=== PATIENT | female | born 1940 | race Caucasian/White ===

== ENCOUNTER 2016-06-21 10:52 | Emergency (ER) | payer OTHER, MEDICARE ==
[~2016-06-21] VITALS: Ht 162.6 cm; Wt 68.0 kg
[~2016-06-21 10:52] MED LIST: AUGMENTIN 875875 MG PO; CYTOMEL PO; TIROSINT75 MCG PO; TIROSINT88 MCG PO; TRUSOPT 2% OPH; VIT B-6100 MG PO; VITAMIN D1000 IU PO; [UNRECOGNIZED DRUG - OTHER] IO
[2016-06-21] MEDS ORDERED: VITAMIN D32000 UNIT PO (11:45)
[2016-06-21] MEDS ORDERED: COMBIGAN EYE DRO5 ML (11:46)
[2016-06-21] MEDS ORDERED: LUMIGAN2.5 ML OPH (11:46)
[2016-06-21] MEDS ORDERED: VITAMIN B-121000 MC3 PO (11:46)
[2016-06-21] MEDS ORDERED: SYNTHROID88 MCG PO (11:47)
[2016-06-21] MEDS ORDERED: ATORVASTATIN CA10 M1 PO (11:48)
[2016-06-21] MEDS ORDERED: LIOTHYRONINE SO5 MC1 PO (11:48)
--- NOTE | 2016-06-21 11:55 | ED UPPER/LOWER EXTREMITY COMPL ---
History of Present Illness General Chief Complaint: General Adult Stated Complaint: L SHOULDER PAIN X DAYS Source: patient Exam Limitations: no limitations Vital Signs & Intake/Output Vital Signs & Intake/Output Vital Signs Date Time Temp Pulse Resp B/P B/P Pulse O2 O2 Flow FiO2 Mean Ox Delivery Rate 06/21 1059 97.3 84 18 115/73 98 Room Air Allergies Coded Allergies: oxycodone (Intermediate, AGITATION/ALTERED MENTAL STATUS 06/21/16) Reconcile Medications Atorvastatin Calcium 10 MG TABLET 1 TAB PO DAILY HPL (Reported) Bimatoprost (Lumigan) 0.01 % DROPS 1 GTT OPH QPM GLAUCOMA (Reported) Brimonidine Tartrate/Timolol (Combigan Eye Drops) (Unknown Strength) DROPS ( Unknown Dose) BID GLAUCOMA (Reported) Cholecalciferol (Vitamin D3) (Vitamin D3) 2,000 UNIT CAPSULE 1 TAB PO DAILY SUPPLEMENT (Reported) Cyanocobalamin (Vitamin B-12) (Unknown Strength) TABLET (Unknown Dose) PO DAILY SUPPLEMENT (Reported) Cyclobenzaprine HCl 10 MG TABLET 1 TAB PO QPM SPASM Ibuprofen 600 MG TABLET 1 TAB PO Q6 PRN PAIN with food Levothyroxine Sodium (Synthroid) 88 MCG TABLET THYROID (Reported) Levothyroxine Sodium (Synthroid) 88 MCG TABLET 1 TAB PO AD THYROID (Reported) TAKES TWICE A WEEK SAT AND SUN Liothyronine Sodium 5 MCG TABLET 1 TAB PO DAILY THYROID (Reported) Triage Note: PT STATES THAT SHE HAS BEEN LIFTING HEAVEY BOXES OF CLOTHES OVER THE PAST COUPLE OF DAYS AND THAT FOR THE PAST 1.5 DAYS SHE HAS PAIN L UPPER ARM AND SHOULDER, PAIN IS REPRODUCIBLE AND STATES THAT SHE IS UNABLE TO LIFT HER ARM. PT TOOK ALEVE WITH SOME RELIEF. REFUSES MEDS AT TRIAGE Triage Nurses Notes Reviewed? yes Onset: Abrupt Duration: day(s): (2) Timing: recent history Severity: mild, moderate Pain/Injury Location: Left: Shoulder. Method of Injury: LIFTING HEAVY BOXES Modifying Factors: Worsens With: movement. HPI: 76 year old female presents with left shoulder pain x few days after lifting heavy boxes for the past several days while cleaning out closet. States in [place] past 1.5 days pain has gotten worse. Pain is worse with range of motion. Past History Travel History Traveled to [place] past 21 day No Medical History Any Pertinent Medical History? 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 No Review of Systems Review of Systems Constitutional: Denies: chills, fever. EENTM: Reports: no symptoms. Respiratory: Denies: cough, short of breath. Cardiovascular: Denies: chest pain, palpitations. Gastrointestinal/Abdominal: Reports: no symptoms. Genitourinary: Reports: no symptoms. Musculoskeletal: Reports: joint pain, muscle pain, muscle stiffness. Skin: Reports: no symptoms. Neurological/Psychological: Reports: no symptoms. Hematologic/Endocrine: Denies: bruising, bleeding, polyuria, polydipsia. Immunological: Denies: splenectomy. All Other Systems: Reviewed and Negative Physical Exam Physical Exam General Appearance: well developed/nourished, mild distress Head: atraumatic Eyes: Bilateral: PERRL, EOMI. Ears, Nose, Throat: normal pharynx, normal ENT inspection, hearing grossly normal Neck: normal inspection, supple Cardiovascular/Respiratory: regular rate/rhythm Peripheral Pulses: 2+ radial (R), 2+ radial (L) Back: normal inspection Shoulder Left: normal range of motion, normal inspection, PAIN WITH RANGE OF MOTION Shoulder Right: normal range of motion, normal inspection, mass, nodules, swelling, tenderness, abrasions/lacerations, assymetry, bone tenderness, deformity, ecchymosis, evidence of injury, joint effusion, pain, soft tissue tenderness, limited range of motion Elbow Left: normal range of motion, normal inspection Elbow Right: normal range of motion, normal inspection Hand Left: normal inspection, normal range of motion Hand Right: normal inspection, normal range of motion Skin: intact, normal color, warm/dry Lymphatic: no anterior cervical win[place] Progress Differential Diagnosis: dislocation, sprain, ac separation, rorator injury, bursitis Plan of Care: Orders Procedure Date/time Status XRY-SHOULDER COMPLETE-LEFT 06/21 115 Active Current Medications Sig/Suman Start time Last Medication Dose Stop Time Status Admin Ibuprofen 600 MG ONCE ONE 06/21 1230 UNVr (Motrin) 06/21 1231 Diagnostic Imaging: Viewed by Me: Radiology Read. Discussed w/RAD: Radiology Read. Comments: PATIENT: JENY SUMNER PRESENT AGE: 76 PATIENT ACCOUNT NO: [id number] : 42 LOCATION: [facility] ORDERING PHYSICIAN: SABRINA SINHA MD SERVICE DATE: 06/21/16-1153 EXAM TYPE: RAD - XRY-SHOULDER COMPLETE-LEFT EXAMINATION: XR SHOULDER, LEFT CLINICAL INFORMATION: 76-year-old female presented with left shoulder pain following lifting, moving. COMPARISON: None. TECHNIQUE: 4 views of the left shoulder. FINDINGS: The glenohumeral joints show satisfactory alignment and intact cortices. Mild osteoarthrosis is noted at the left acromioclavicular joint. No focal osseous abnormality present. The soft tissues are unremarkable. Mild diffuse osteopenia is noted. Few surgical clips are projecting within the soft tissue of the visualized left-sided neck. IMPRESSION: 1. 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 2. Mild diffuse osteopenia. 3. No radiographic evidence of any acute fracture and/or dislocation is seen at the left shoulder. 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 <Electronically signed in Other Vendor System> SIGNED BY: NADEGE EATON MD 06/21/16 1235 Departure Departure Time of Disposition: 5 Disposition: HOME OR SELF CARE Condition: Stable Clinical Impression Primary Impression: Sprain of shoulder, left Referrals: [facility],PREETHI Hay (PCP/Family) [facility],EMEKA Lawrence Additional Instructions: YOUR XRAY DID NOT SHOW ANY DISLOCATION OR FRACTURE .ICE, REST AND ELEVATE THE ARM. TAKE ADVIL NEEDED FOR PAIN. FOLLOW UP WITH DR. BARTON IN THE OFFICE IF YOUR SYMPTOMS ARE NOT RESOLVING. RETURN IF WORSE. Departure Forms: Customer Survey General Discharge Information Prescriptions: Current Visit Scripts Ibuprofen 1 TAB PO Q6 PRN PAIN #30 TAB with food Cyclobenzaprine HCl 1 TAB PO QPM #20 TAB
--- NOTE | 2016-06-21 12:35 | RADIOLOGY REPORT ---
EXAMINATION: XR SHOULDER, LEFT CLINICAL INFORMATION: 76-year-old female presented with left shoulder pain following lifting, moving. COMPARISON: None. TECHNIQUE: 4 views of the left shoulder. FINDINGS: The glenohumeral joints show satisfactory alignment and intact cortices. Mild osteoarthrosis is noted at the left acromioclavicular joint. No focal osseous abnormality present. The soft tissues are unremarkable. Mild diffuse osteopenia is noted. Few surgical clips are projecting within the soft tissue of the visualized left-sided neck. IMPRESSION: 1. 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 2. Mild diffuse osteopenia. 3. No radiographic evidence of any acute fracture and/or dislocation is seen at the left shoulder.
[2016-06-21 13:18] VITALS: BP 118/64
[2016-06-21] MEDS ORDERED: CYCLOBENZAPRINE10 M1 PO (13:22)
[2016-06-21] MEDS ORDERED: IBUPROFEN600 M1 PO (13:22)
== END 2016-06-21 13:25 ==
LOC: ERH 10:52
DX: S43.402A Unspecified sprain of left shoulder joint, initial encounter (principal); X58.XXXA Exposure to other specified factors, initial encounter; Y92.9 Unspecified place or not applicable; Y93.9 Activity, unspecified
CPT/HCPCS: 73030-LT